=== PATIENT | male | born 1945 | race Two or more races ===

== ENCOUNTER 2016-08-17 12:48 | Day surgery (SDC) | payer OTHER ==
[~2016-08-17] VITALS: Ht 172.7 cm; Wt 92.5 kg
[2016-08-17] MEDS ORDERED: AMLO5TAB2 PO (13:10)
[2016-08-17] MEDS ORDERED: ASPI325T PO (13:10)
[2016-08-17] MEDS ORDERED: METF1000 PO (13:10)
[2016-08-17] MEDS ORDERED: LISI-515 PO (13:10)
[2016-08-17] MEDS ORDERED: GLIP10TA6 PO (13:10)
[2016-08-17] MEDS ORDERED: VYTO10TA8 PO (13:10)
[2016-08-17 13:16] VITALS: BP 135/60; PULSE 57; RESP 18; TEMP 98.4; O2SAT 99
[2016-08-17 13:28] LABS: AUTOMATED NEUTROPHIL # 9.3 TH/MM3 (1.8-7.7); BASOPHIL # 0.1 TH/MM3 (0-0.2); EOSINOPHIL # 0.4 TH/MM3 (0-0.4); EOSINOPHIL % 3.2 % (0.0-4.0); HEMATOCRIT 43.7 % (39.0-51.0); HEMO FLAGS DIFF FINAL; LYMPHOCYTE # 2.2 TH/MM3 (1.0-4.8); MEAN CELL VOLUME 81.3 FL (80.0-100.0); MONO % 5.6 % (0.0-8.0); NEUT % 73.2 % (16.0-70.0); PLATELET COUNT 290 TH/MM3 (150-450); RED BLOOD COUNT 5.38 MIL/MM3 (4.50-5.90); RED CELL DISTRIBUTION WIDTH 14.7 % (11.6-17.2); WHITE BLOOD COUNT 12.7 TH/MM3 (4.0-11.0)
[2016-08-17 13:38] LABS: APTT (PATIENT) 26.3 SEC (24.3-30.1); PROTHROMBIN TIME - PATIENT 10.5 SEC (9.8-11.6)
[2016-08-17 13:44] LABS: BICARBONATE 18.7 MEQ/L (21.0-32.0); POTASSIUM 4.9 MEQ/L (3.5-5.1)
[2016-08-17] MEDS ORDERED: IOHEXOL 350 MG/ML 100 ML BTL (for Cath Lab) OTHER ONE (14:55)
[2016-08-17] MEDS ORDERED: MIDAZOLAM HCL 2 MG/2 ML VIAL ONE ×2 (15:06→15:58)
[2016-08-17] MEDS ORDERED: HEPARIN-NS/PF INJ 500 ML ONE (15:06)
[2016-08-17] MEDS ORDERED: TIROFIBAN INFUSION INJ 250 ML IV ONE (15:54)
[2016-08-17] MEDS ORDERED: HEPARIN SODIUM - IV 10,000 UNITS/10 ML VIAL ONE (15:54)
[2016-08-17] MEDS ORDERED: TICAGRELOR 90 MG TAB PO ONE (16:47)
[2016-08-17] MEDS ORDERED: SODIUM CHLOR 0.9% 1000 ML INJ 1,000 ML IV SCH (17:02)
[2016-08-17] MEDS ORDERED: TIROFIBAN INFUSION INJ 250 ML IV SCH (17:02)
[2016-08-17] MEDS ORDERED: TEMAZEPAM 15 MG CAP PO PRN (17:15)
[2016-08-17] MEDS ORDERED: SODIUM CHLORIDE 0.9% FLUSH 5 ML FLUSH IVF PRN (17:15)
[2016-08-17] MEDS ORDERED: amLODIPine BESYLATE 5 MG TAB PO SCH (17:15)
[2016-08-17] MEDS ORDERED: MISC INFORMATION XX ONE (17:15)
[2016-08-17] MEDS ORDERED: glipiZIDE 10 MG TAB PO SCH (17:15)
[2016-08-17] MEDS ORDERED: LISINOPRIL 20 MG TAB PO SCH (17:15)
--- NOTE | 2016-08-17 17:28 | MA ---
cc: TAMMY BURT DATE: 08/17/2016 PROCEDURE Left heart catheterization, selective coronary and graft angiography, angioplasty and stent of the vein graft to the first obtuse marginal, aortic root injection PROCEDURE NOTE The patient was brought to the cardiac catheterization laboratory in a fasting state after having signed informed consent. The right groin was prepped and draped as per policy and anesthetized with 1% lidocaine. Arterial access was obtained via the right femoral artery and a 6-Turk[place] sheath placed. Coronary arteriography was performed using 6-Turk[place] Reji left 4.0 and right progressive catheters. All of the bypass grafts were engaged with the progressive right catheter. Left ventriculography was not done due to the patient's elevated creatinine. A DyeVert device was used throughout the case. Percutaneous graft intervention was done as described below. There were no apparent immediate complications. The aortic valve was crossed using a pigtail catheter to obtain left ventricular pressures. HEMODYNAMIC DATA Left ventricle 124 with an end-diastolic pressure of 15. Aorta 125/58 with a mean of 86. There was no significant transvalvular aortic gradient on pullback of the pigtail catheter. CORONARY ARTERIOGRAPHY The left main has approximately 10% proximal stenosis. The left anterior descending is totally occluded at its origin. The left circumflex is a medium-sized vessel, probably totally occluded in its midportion. There is also likely at least one totally occluded obtuse marginal arising from the left circumflex. The right coronary artery is totally occluded near its origin. GRAFT ANGIOGRAPHY. The vein graft to the right coronary artery has diffuse mild luminal irregularities. There is a Y-graft to the first and second obtuse marginals. The limb to the second obtuse marginal is widely patent. The limb to the first obtuse marginal is large in caliber and demonstrates an 80-85% stenosis very near its origin. The left internal mammary artery to the diagonal is widely patent. The vein graft to the LAD is widely patent. The mid to distal LAD has minimal diffuse luminal irregularities. LEFT VENTRICULOGRAPHY Not done. PERCUTANEOUS GRAFT INTERVENTION DESCRIPTION: Aggrastat was given as per protocol. Adequate heparin was given during the procedure to achieve an ACT greater than 250 seconds. Using a 6-Turk[place] Reji right 4.0 guiding catheter the ostium of the Y-graft to the first and second obtuse marginals was re-engaged. Using a 0.014 [place] guidewire the very proximal disease in the limb to the first obtuse marginal was crossed without difficulty and the tip of the wire positioned distally. A spider filter wire was advanced past the lesion and deployed after the [place] guide wire was removed. Predilation was initially done using a 3.0 mm Euphora balloon catheter. Further predilation was eventually done using 4.0 noncompliant Quantum balloon catheter. Despite high pressures, there was continued residual waste within the lesion resulting in about 25 to 30% stenosis. At this point it was decided to stent the lesion. This was done using a 4.0 x 12-mm Resolute stent which was postdilated using a 4.5 mm noncompliant Quantum balloon catheter which was inflated to 18 atmospheres (4.61 mm) three times. Again, we are unable to resolve the residual waste in the lesion. Final angiography shows acceptable results with reduction of the initial stenosis to roughly 25% residual with no definite evidence for dissection or distal embolization. The patient tolerated the procedure well. There were no apparent immediate complications. CONCLUSION 1. Severe three-vessel [place] coronary artery disease. 2. Right dominant system. 3. Patent 5/5 bypass grafts including a left internal mammary artery to the diagonal, vein graft to the right coronary artery, vein graft to the LAD, Y-graft to the first and second obtuse marginals although the limb to the first obtuse marginal had a severe stenosis near its origin. The patient is now status post angioplasty and stent of this lesion. MD DAYNE Fay/THEA /4:55 PM /5:08 PM CANDIDA
[2016-08-17 20:00] VITALS: BP 137/71; PULSE 67; RESP 19; TEMP 97.8; O2SAT 95
[2016-08-17] MEDS ORDERED: SODIUM CHLORIDE 0.9% FLUSH 5 ML FLUSH IVF SCH (21:00)
[2016-08-17] MEDS ORDERED: NON-FORMULARY DRUG (Ezetimibe-Simvastatin (Vytorin) 1 TAB) PO SCH (21:00)
[2016-08-17] MEDS ORDERED: PRAVASTATIN SOD 40 MG TAB PO SCH (21:00)
[2016-08-17] MEDS ORDERED: EZETIMIBE 10 MG TAB PO SCH (21:00)
[2016-08-18] VITALS: BP 125/64; PULSE 72; RESP 19; TEMP 98.5; O2SAT 96
[2016-08-18 03:27] LABS: AUTOMATED NEUTROPHIL # 9.6 TH/MM3 (1.8-7.7); BASOPHIL # 0.1 TH/MM3 (0-0.2); BASOPHIL % 0.9 % (0.0-2.0); EOSINOPHIL # 0.4 TH/MM3 (0-0.4); EOSINOPHIL % 3.3 % (0.0-4.0); HEMATOCRIT 42.3 % (39.0-51.0); HEMO FLAGS DIFF FINAL; LYMPH % 12.8 % (9.0-44.0); LYMPHOCYTE # 1.6 TH/MM3 (1.0-4.8); MEAN CELL VOLUME 79.9 FL (80.0-100.0); MEAN CORPUSCULAR HEMOGLOBIN 26.7 PG (27.0-34.0); MEAN CORPUSCULAR HGB CONC 33.4 % (32.0-36.0); MONO % 7.9 % (0.0-8.0); NEUT % 75.1 % (16.0-70.0); PLATELET COUNT 285 TH/MM3 (150-450); RED BLOOD COUNT 5.29 MIL/MM3 (4.50-5.90); RED CELL DISTRIBUTION WIDTH 15.1 % (11.6-17.2); WHITE BLOOD COUNT 12.8 TH/MM3 (4.0-11.0)
[2016-08-18 03:58] LABS: BICARBONATE 21.2 MEQ/L (21.0-32.0); POTASSIUM 4.6 MEQ/L (3.5-5.1)
[2016-08-18 04:00] VITALS: BP 110/79; PULSE 73; RESP 18; TEMP 98.9; O2SAT 95
[2016-08-18 04:00] LABS: HDL CHOLESTEROL 33.8 MG/DL (40.0-60.0)
--- NOTE | 2016-08-18 08:49 | PD.CARD.PN ---
Subjective Subjective Remarks Denies CP, dizziness, groin pain. Mild dyspnea. Objective Medications Item Value Date Time Aspirin 81 mg 08/18/16 09 (Aspirin Chew) DAILY/PO Ticagrelor 90 mg 08/18/16 0900 (Brilinta) BID/PO EZETIMIBE 10 mg 08/17/162099 (Zetia) HS/PO Pravastatin Sodium 40 mg 08/17/162099 (Pravachol) HS/PO Amlodipine 5 mg 08/17/16 1715 Besylate DAILY/PO (Norvasc) Lisinopril 20 mg 08/17/16 171 (Prinivil) DAILY/PO Tirofiban/Sodium 250 ml @ 16.65 mls/hr 08/17/16 1702 Chloride Q15H1M/IV Vital Signs / I&O Vital Signs Date Time Temp Pulse Resp B/P Pulse Ox O2 Delivery O2 Flow Rate FiO2 08/18/16 04:00 98.9 73 18 110/79 95 08/18/16 00:00 98.5 72 19 125/64 96 08/17/16 20:00 97.8 67 19 137/71 95 08/17/16 17:13 97 Room Air 08/17/16 13:16 98.4 57 18 135/60 99 I/O 08/17/16 08/17/16 08/17/16 08/18/16 08/18/16 08/18/16 07:00 15:00 23:00 07:00 15:00 23:00 Intake Total 200 ml Balance 200 ml Intake Oral 200 ml # Voids 4 Physical Exam GENERAL: Well developed, well nourished. No acute distress. HEENT: Jugular venous pressure is normal. CHEST: Lungs clear to auscultation bilaterally. Unlabored respiratory effort. CARDIAC: Regular rate and rhythm without S3, S4. II/ diffuse systolic murmur. Normal S2. Right groin nontender, no hematoma. ABDOMEN: Soft, nontender, no hepatosplenomegaly. Bowel sounds present. EXTREMITIES: No clubbing, cyanosis, or edema. Laboratory Laboratory Tests Test 08/17/16 08/18/16 13:20 03:16 White Blood Count 12.7 TH/MM3 12.8 TH/MM3 Red Blood Count 5.38 MIL/MM3 5.29 MIL/MM3 Hemoglobin 14.0 GM/DL 14.1 GM/DL Hematocrit 43.7 % 42.3 % Mean Corpuscular Volume 81.3 FL 79.9 FL Mean Corpuscular Hemoglobin 26.0 PG 26.7 PG Mean Corpuscular Hemoglobin 32.0 % 33.4 % Concent Red Cell Distribution Width 14.7 % 15.1 % Platelet Count 290 TH/MM3 285 TH/MM3 Mean Platelet Volume 8.1 FL 8.0 FL Neutrophils (%) (Auto) 73.2 % 75.1 % Lymphocytes (%) (Auto) 17.0 % 12.8 % Monocytes (%) (Auto) 5.6 % 7.9 % Eosinophils (%) (Auto) 3.2 % 3.3 % Basophils (%) (Auto) 1.0 % 0.9 % Neutrophils # (Auto) 9.3 TH/MM3 9.6 TH/MM3 Lymphocytes # (Auto) 2.2 TH/MM3 1.6 TH/MM3 Monocytes # (Auto) 0.7 TH/MM3 1.0 TH/MM3 Eosinophils # (Auto) 0.4 TH/MM3 0.4 TH/MM3 Basophils # (Auto) 0.1 TH/MM3 0.1 TH/MM3 CBC Comment DIFF FINAL DIFF FINAL Differential Comment Prothrombin Time 10.5 SEC Prothromb Time International 1.0 RATIO Ratio Activated Partial 26.3 SEC Thromboplast Time Sodium Level 138 MEQ/L 141 MEQ/L Potassium Level 4.9 MEQ/L 4.6 MEQ/L Chloride Level 108 MEQ/L 111 MEQ/L Carbon Dioxide Level 18.7 MEQ/L 21.2 MEQ/L Anion Gap 11 MEQ/L 9 MEQ/L Blood Urea Nitrogen 37 MG/DL 32 MG/DL Creatinine 1.73 MG/DL 1.48 MG/DL Estimat Glomerular Filtration 39 ML/MIN 47 ML/MIN Rate Random Glucose 181 MG/DL 131 MG/DL Calcium Level 9.3 MG/DL 8.8 MG/DL Total Creatine Kinase 70 U/L Triglycerides Level 280 MG/DL Cholesterol Level 137 MG/DL LDL Cholesterol 47 MG/DL HDL Cholesterol 33.8 MG/DL Cholesterol/HDL Ratio 4.05 RATIO Assessment and Plan Problem List: (1) CAD (coronary artery disease) Assessment and Plan: Stable s/p stent of SV to OM1 yesterday. Groin stable. Renal indices improved post dye load. To discharge today, same home medications plus Brilinta 90 mg bid. 4 week f/u. Ad clarice activity. (2) Hyperlipidemia Assessment and Plan: Acceptable LDL in 40's on lipid profile. Continue statin. (3) Hypertension Assessment and Plan: Stable. Normotensive. Code Status full code Discussed Condition With patient Problem Qualifiers (1) CAD (coronary artery disease): Qualified Code: I25.700 - Coronary artery disease involving coronary bypass graft of [place] heart with unstable angina pectoris (2) Hyperlipidemia: Qualified Code: E78.2 - Mixed hyperlipidemia (3) Hypertension: Qualified Code: I10 - Essential hypertension Murali Yang MD Aug 18, 2016 08:49
[2016-08-18] MEDS ORDERED: BRIL90TA PO (08:51)
[2016-08-18] MEDS ORDERED: Aspirin Chew PO (08:51)
[2016-08-18] MEDS ORDERED: ASPIRIN 81 MG CHEW TAB PO SCH (09:00)
[2016-08-18] MEDS ORDERED: TICAGRELOR 90 MG TAB PO SCH (09:00)
[2016-08-18] MEDS ORDERED: METOPROLOL SUCCINATE 50 MG EXTENDED RELEASE TAB PO SCH (09:30)
--- NOTE | 2016-08-18 14:26 | EKG ---
Date Performed: 08/17/2016 Time Performed: 13:29:56 PTAGE: 71 years EKG: Sinus rhythm with PVC(s). Leftward axis Poor R wave progression - probable normal variant Low QRS voltages in pre cordial leads Borderline ECG NO PREVIOUS TRACING DOCTOR: Ashley Barron Interpretating Date/Time 08/18/2016 14:25:01
--- NOTE | 2016-08-18 14:27 | EKG ---
Date Performed: 08/17/2016 Time Performed: 17:43:34 PTAGE: 71 years EKG: Normal Sinus rhythm Left axis deviation rSr with poor R wave progression Compared to previous tracing PVCs have resolved Abnormal ECG PREVIOUS TRACING : 08/17/2016 13.29 DOCTOR: Ashley Barron Interpretating Date/Time 08/18/2016 14:25:42
== END 2016-08-18 10:20 | disposition home or self-care (01) ==
LOC: HCAT 12:48 → HDIC 12:49 → UNDOADMOB 17:11 → HCAT 17:11 → HSDI 17:11 → HDIC 20:17 → UNDODISOB 08-18 10:20
PROVIDERS: ATTEND Internal Medicine Cardiovascular Disease
DX: I25.10 Atherosclerotic heart disease of native coronary artery without angina pectoris (principal); E78.2 Mixed hyperlipidemia; I10 Essential (primary) hypertension; E11.9 Type 2 diabetes mellitus without complications; Z79.84 Long term (current) use of oral hypoglycemic drugs; Z79.01 Long term (current) use of anticoagulants
CPT/HCPCS: 80048; 80061; 82550; 85002; 85025; 85610; 85730; 92928; 93005; 93454; 93567; C1725; C1769; C1874; C1884; C1887; C1893; J1644; J2250; J3246; Q9967